=== PATIENT | female | born 1980 | race Caucasian/White ===

== ENCOUNTER → 2016-09-23 | Outpatient (CLI) | payer BC ==
[2016-09-25 15:08] LABS: CHLAMYDIA TRACH RNA*** NOT DETECTED (NOT DETECTED); GC (NEIS GONORRHOEAE)RNA** NOT DETECTED (NOT DETECTED)
== END | disposition home or self-care (01) ==
LOC: C.LABSPEC 13:15
PROVIDERS: ATTEND Physician Assistant
DX: Z30.430 Encounter for insertion of intrauterine contraceptive device (principal)

== ENCOUNTER 2020-09-28 07:38 | Inpatient (IN) ==
[2020-09-28] MEDS ORDERED: OXYTOCIN 30 UNITS/500 ML BAG IV PRN ×2 (08:33→08:36)
[2020-09-28 09:15] LABS: Hematocrit (blood only) 37.4 % (37-47); Hemoglobin 12.4 g/dL (12.0-16.0); Mean Corpuscular Hemoglobin 29.9 pg (25-34); Mean Corpuscular Hgb Conc 33.2 g/dL (32-36); Mean Corpuscular Volume 90.1 fL (80-100); Mean Platelet Volume 11.3 fL (7.4-10.4); Platelet Count 255 K/uL (130-400); RDW Coefficient of Variation 15.1 % (11.5-14.5); RDW Standard Deviation 49.2 fL (36.4-46.3); Red Blood Count 4.15 M/uL (4.2-5.4); White Blood Count 13.09 K/uL (4.8-10.8)
--- NOTE | 2020-09-28 09:35 | History & Physical Report ---
Date of Service September 28, 2020 Assessment & Plan (1) Insulin controlled gestational diabetes mellitus (GDM) during : Xiao is a 40-year-old at 39 weeks 5 days gestational age. Induction of labor for insulin-dependent gestational diabetes. 1. fetus: Cat 1 2. Labor: s/p chamorro, Pitocin per protocol. Will AROM when able 3. GBS negative. 4. Vitals: stable 5. A2gDM: BG q1hr (2) Supervision of elderly primigravida: Admission and Anticipated Discharge Date Admission Date: September 28, 2020 History of Present Illness Primary Care Provider: NO PCP Xiao is a 40-year-old at 39 weeks 5 days gestational age presents for induction of labor secondary to insulin-dependent gestational diabetes. Patient doing well today. Denying any significant contractions. Denies leakage of fluid or vaginal bleeding. Good movement. complicated by insulin-dependent gestational diabetes and advanced maternal age. OB Labs: Blood Type A Positive 02/27/20 Antibody Screen NEGATIVE 02/27/20 Hemoglobin 12.7 g/dL (12.0-16.0) 07/10/20 Hematocrit 38.0 % (37-47) 07/10/20 Mean Corpuscular Volume 88.2 fL (80-100) 02/27/20 Platelet Count 270 K/uL (130-400) 02/27/20 Rubella IgG Antibody Immune (Immune) 02/27/20 Rapid Plasma Reagin Nonreactive (Nonreactive) 02/27/20 Hepatitis B Surface Antigen Neg (Neg) 02/27/20 HIV (1&2) Ab and P24 Ag, 4th Gener Neg (Neg) 02/27/20 Glucose 1 Hour 50 gm Load 131 mg/dl (70-130) H 04/17/20 Maternal Serum Alpha Fetoprotein 37.8 ng/mL 04/17/20 OB Optional Labs: Chlamydia trachomatis RNA NOT DETECTED (NOT DETECTED) 02/27/20 Neisseria gonorrhoeae RNA NOT DETECTED (NOT DETECTED) 02/27/20 Alpha Fetoprotein Triple Screen SEE NOTE 04/17/20 Labs Reviewed: cfDNA HR AFP neg normal female karyotype, fish from [facility] amnio Allergies Allergy/AdvReac Type Severity Reaction Status Date / Time amoxicillin Allergy Mild Rash Verified 09/27/20 19:15 Home Medications Medication Instructions Recorded Confirmed Type prenat.vits,mariel,[id number] 1 tab PO DAILY 02/22/20 09/28/20 History acetone (urine) test #50 ea 05/31/20 09/27/20 Rx OneTouch Delica Plus Lancet 33 #200 ea NS 06/25/20 09/27/20 Rx gauge OneTouch Verio Flex Start #1 ea NS 06/25/20 09/27/20 Rx OneTouch Verio test strips #150 ea NS 06/25/20 09/27/20 Rx insulin aspart U-100 100 unit/mL See Rx Instructions SUBCUT 08/10/20 09/28/20 Rx (3 mL) subcutaneous pen .COMPLEX #15 ml pen needle, diabetic 32 gauge x #150 ea 08/10/20 09/27/20 Rx " Patient History Surgical History S/P wisdom tooth extraction Family History Father Hypertension Other Dyslipidemia Social History Smoking Status: Never smoker Hx Alcohol Use: No Hx Substance Use: No Preferred Language: Palestinian Communication Ability: Effective Vest Baster Required: No Beliefs That Will Affect Care: None marital status: marital status details: Peterson (40) [phone] Current Living Situation: Spouse Current Living Situation Comment: lives wtih spouse, 1 dog current occupational status: employed current occupation: [employer]. Other Information That Helps Us Care for You: No Feels Safe at Home: Yes Safety Concerns: Feels Safe At This Time Assistive Devices: Contacts and Glasses Physical Exam Constitutional: WD/WN, vitals as above Gastrointestinal (Abdomen): Inspection/Auscultation: abdomen not distended Percussion/Palpation: abdomen soft; abdomen nontender, no guarding and abdomen not rigid Psychiatric: A+Ox3, euthymic affect Genitourinary: normal external appearance OB Exam Abdomen: + vertex Manual OB Exam: + cervical dilation 4 cm, + cervical effacement 50% and + station -2 OB Exam Monitor Tracing: + external FHT monitor used, + external uterine monitor used, + category I and + normal FHT variability; no early decelerations present, no late decelerations present and no variable decelerations Results & Data ([facility]) Vital Signs (Past 12 Hours) Vital Signs Temp Pulse Resp BP 09/28/20 07:54 36.6 C 104 H 18 117/78 09/28/20 07:43 104 H 117/78 09/28/20 07:41 36.6 C 18 Coding Level of Care Code None Diagnoses Insulin controlled gestational diabetes mellitus (GDM) during O24.414 Supervision of elderly primigravida O09.519
[2020-09-28] MEDS: LACTATED RINGER'S 1,000 ML IV PRN ×3 (10:23→21:30)
--- NOTE | 2020-09-28 14:24 | Labor Progress Brief Note ---
Date of Service September 28, 2020 Subjective Reason For Note: Routine Evaluation Assessment & Plan (1) Insulin controlled gestational diabetes mellitus (GDM) during : Xioa is a 40-year-old at 39 weeks 5 days gestational age. Magaly ction of labor for insulin-dependent gestational diabetes. 1. fetus: Cat 1 2. Labor: s/p chamorro, Pitocin per protocol. AROM mec 3. GBS negative. 4. Vitals: stable 5. A2gDM: Stable, BG q2hr (2) Supervision of elderly primigravida: Admission and Anticipated Discharge Date Admission Date: September 28, 2020 Physical Exam Constitutional: WD/WN, vitals as above Psychiatric: A+Ox3, euthymic affect Genitourinary: OB Exam Abdomen: + vertex Manual OB Exam: + cervical dilation 5 cm, + cervical effacement 60%, + station -2 and + amniotic fluid meconium OB Exam Monitor Tracing: + external FHT monitor used, + external uterine monitor used, + category I and + normal FHT variability; no early decelerations present, no late decelerations present and no variable decelerations Results & Data ([facility]) Vital Signs (Past 12 Hours) Vital Signs Temp Pulse Resp BP 09/28/20 13:29 36.8 C 93 H 18 122/69 09/28/20 12:41 93 H 18 131/62 09/28/20 11:29 86 18 129/71 09/28/20 10:20 88 18 128/72 09/28/20 07:54 36.6 C 104 H 18 117/78 09/28/20 07:43 104 H 117/78 09/28/20 07:41 36.6 C 18 Coding Level of Care Code None Diagnoses Insulin controlled gestational diabetes mellitus (GDM) during O24.414 Supervision of elderly primigravida O09.519
[2020-09-28] MEDS ORDERED: BUPIVACAINE 0.25% 30 ML VIAL ONE (14:52)
[2020-09-28] MEDS ORDERED: ePHEDrine sulfate 50 MG/ML AMP ONE (14:52)
[2020-09-28] MEDS ORDERED: SODIUM CHLORIDE 0.9% INJ 10 ML VIAL ONE (14:52)
[2020-09-28] MEDS ORDERED: fentaNYL citrate 100 MCG/2 ML VIAL ONE ×2 (14:52→23:47)
[2020-09-28] MEDS ORDERED: fentaNYL 2MCG/ML ROPIVACAINE 1.25MG/ML 100 ML BAG EPI ONE (14:53)
--- NOTE | 2020-09-28 15:57 | Anesthesiology Consultation ---
Date of Service September 28, 2020 Assessment & Plan Chart Review Chart Review: Acceptable Risk for Labor Epidural Consults Requested none History Height/Weight Height: 5 ft 4 in Weight: 99.79 kg Allergies Allergy/AdvReac Type Severity Reaction Status Date / Time amoxicillin Allergy Mild Rash Verified 09/27/20 19:15 Medications Home Medications Medication Instructions Recorded Confirmed Last Taken prenat.vits,mariel,[id number] 1 tab PO DAILY 02/22/20 09/28/20 09/27/20 08:00 acetone (urine) test #50 ea 05/31/20 09/27/20 Unknown OneTouch Delica Plus Lancet 33 #200 ea NS 06/25/20 09/27/20 Unknown gauge OneTouch Verio Flex Start #1 ea NS 06/25/20 09/27/20 Unknown OneTouch Verio test strips #150 ea NS 06/25/20 09/27/20 Unknown insulin aspart U-100 100 unit/mL See Rx Instructions SUBCUT 08/10/20 09/28/20 09/26/20 22:00 (3 mL) subcutaneous pen .COMPLEX #15 ml 35 U pen needle, diabetic 32 gauge x #150 ea 08/10/20 09/27/20 Unknown " Active Medications Generic Name Dose Route Start Last Admin Trade Name Freq PRN Reason Stop Dose Admin Lactated Ringer's 1,000 mls @ 125 mls/hr 09/28/20 08:33 09/28/20 15:35 Lr IV 09/30/20 08:32 125 mls/hr .Q8H PRN Infusion L&D Protocol Protocol Oxytocin 30 units in 500 mls @ 12 mls/hr 09/28/20 08:36 09/28/20 15:19 Pitocin IV 09/30/20 08:35 0.72 units/hr .Q24H PRN 12 mls/hr Labor Induction/Augmentation Titration Protocol 0.72 UNITS/HR Past Family History Family History Father Hypertension Other Dyslipidemia Past Surgical History Surgical History S/P wisdom tooth extraction Social History Smoking Status: Never smoker Hx Alcohol Use: No Hx Substance Use: No substance use type: does not use Physical Exam Vital Signs Last Vital Signs Temp 36.8 C 09/28/20 13:29 Pulse 95 H 09/28/20 15:54 Resp 18 09/28/20 13:29 BP 125/66 09/28/20 15:54 Pulse Ox 98 09/28/20 15:54 Testing Laboratory Results 09/28/20 08:55
[2020-09-28] MEDS ORDERED: diphenhydrAMINE 50 MG/ML VIAL IV PRN (15:58)
[2020-09-28] MEDS ORDERED: ePHEDrine sulfate 50 MG/ML AMP IV PRN (15:58)
[2020-09-28] MEDS ORDERED: NALOXONE HCL 0.4 MG/1 ML VIAL/CARP IV PRN (15:58)
[2020-09-28] MEDS ORDERED: NALOXONE HCL 1 MG in SODIUM CHLORIDE 0.9% 1000ML 1,000 ML IV PRN (15:58)
--- NOTE | 2020-09-28 19:17 | Labor Progress Brief Note ---
Date of Service September 28, 2020 Subjective Reason For Note: Routine Evaluation Assessment & Plan (1) Insulin controlled gestational diabetes mellitus (GDM) during : Xiao is a 40-year-old at 39 weeks 5 days gestational age. Magaly ction of labor for insulin-dependent gestational diabetes. 1. fetus: Cat 1 2. Labor: progressing, s/p chamorro, Pitocin per protocol. AROM mec 3. GBS negative. 4. Vitals: stable 5. A2gDM: Stable, BG q2hr (2) Supervision of elderly primigravida: Admission and Anticipated Discharge Date Admission Date: September 28, 2020 Physical Exam Constitutional: WD/WN, vitals as above Psychiatric: A+Ox3, euthymic affect Genitourinary: OB Exam Abdomen: + vertex Manual OB Exam: + cervical dilation (5.5), + cervical effacement 90%, + station -1 and + amniotic fluid meconium OB Exam Monitor Tracing: + external FHT monitor used, + external uterine monitor used, + category I and + normal FHT variability; no early decelerations present, no late decelerations present and no variable decelerations Results & Data ([facility]) Vital Signs (Past 12 Hours) Vital Signs Temp Pulse Resp BP Pulse Ox 09/28/20 19:09 91 H 98 09/28/20 19:04 92 H 99 09/28/20 19:01 84 110/63 94 09/28/20 18:59 86 98 09/28/20 18:54 85 99 09/28/20 18:49 93 H 99 09/28/20 18:46 90 125/68 09/28/20 18:44 87 99 09/28/20 18:39 88 99 09/28/20 18:37 99 H 94 09/28/20 18:34 92 H 100 09/28/20 18:31 93 H 129/74 09/28/20 18:29 102 H 100 09/28/20 18:24 91 H 99 09/28/20 18:19 93 H 100 09/28/20 18:15 90 118/67 09/28/20 18:14 90 100 09/28/20 18:09 94 H 82 L 09/28/20 18:04 93 H 100 09/28/20 18:00 99 H 115/69 09/28/20 17:59 94 H 100 09/28/20 17:54 92 H 100 09/28/20 17:49 91 H 99 09/28/20 17:46 86 115/64 09/28/20 17:44 96 H 99 09/28/20 17:39 97 H 99 09/28/20 17:34 95 H 98 09/28/20 17:31 90 121/58 L 09/28/20 17:29 96 H 98 09/28/20 17:24 99 H 98 09/28/20 17:19 105 H 97 09/28/20 17:15 96 H 127/62 09/28/20 17:14 103 H 98 09/28/20 17:09 97 H 97 09/28/20 17:04 89 97 09/28/20 17:00 36.7 C 90 20 121/67 09/28/20 16:59 90 97 09/28/20 16:58 89 93 09/28/20 16:54 96 H 97 09/28/20 16:49 96 H 96 09/28/20 16:46 88 118/66 09/28/20 16:44 99 H 96 09/28/20 16:39 92 H 96 09/28/20 16:34 92 H 95 09/28/20 16:31 102 H 120/74 09/28/20 16:29 99 H 95 09/28/20 16:28 103 H 94 09/28/20 16:24 110 H 95 09/28/20 16:21 97 H 94 09/28/20 16:19 102 H 95 09/28/20 16:14 101 H 95 09/28/20 16:10 113 H 122/65 09/28/20 16:09 108 H 96 09/28/20 16:06 102 H 94 09/28/20 16:05 125 H 123/67 09/28/20 16:04 125 H 96 09/28/20 16:00 108 H 134/67 09/28/20 15:59 100 H 96 09/28/20 15:54 95 H 125/66 98 09/28/20 15:52 90 115/60 09/28/20 15:50 86 123/63 09/28/20 15:49 88 100 09/28/20 15:48 85 126/64 09/28/20 15:46 88 123/67 09/28/20 15:44 80 121/63 100 09/28/20 15:42 88 134/75 89 L 09/28/20 15:40 89 136/64 09/28/20 15:39 93 H 151/70 H 100 09/28/20 15:34 97 H 100 09/28/20 15:31 109 H 93 09/28/20 15:29 93 H 100 09/28/20 15:24 91 H 100 09/28/20 15:19 87 100 09/28/20 15:14 95 H 100 09/28/20 15:09 92 H 125/62 100 09/28/20 15:04 89 99 09/28/20 15:00 36.6 C 20 09/28/20 14:27 88 129/70 09/28/20 13:29 36.8 C 93 H 18 122/69 09/28/20 12:41 93 H 18 131/62 09/28/20 11:29 86 18 129/71 09/28/20 10:20 88 18 128/72 09/28/20 07:54 36.6 C 104 H 18 117/78 09/28/20 07:43 104 H 117/78 09/28/20 07:41 36.6 C 18 Coding Level of Care Code None Diagnoses Insulin controlled gestational diabetes mellitus (GDM) during O24.414 Supervision of elderly primigravida O09.519
--- NOTE | 2020-09-28 20:41 | Labor Progress Brief Note ---
Date of Service September 28, 2020 Subjective Reason For Note: Routine Evaluation Assessment & Plan (1) Insulin controlled gestational diabetes mellitus (GDM) during : Xiao is a 40-year-old at 39 weeks 5 days gestational age. Magaly ction of labor for insulin-dependent gestational diabetes. 1. fetus: Cat 1 2. Labor: progressing, s/p chamorro, Pitocin per protocol. AROM mec 3. GBS negative. 4. Vitals: stable 5. A2gDM: Stable, BG q2hr (2) Supervision of elderly primigravida: Admission and Anticipated Discharge Date Admission Date: September 28, 2020 Physical Exam Genitourinary: OB Exam Abdomen: + vertex Manual OB Exam: + cervical dilation (6), + cervical effacement 90% and + station 0 OB Exam Monitor Tracing: + external FHT monitor used, + external uterine monitor used, + category I and + normal FHT variability Results & Data ([facility]) Vital Signs (Past 12 Hours) Vital Signs Temp Pulse Resp BP Pulse Ox 09/28/20 20:34 98 H 100 09/28/20 20:30 93 H 132/62 09/28/20 20:29 95 H 100 09/28/20 20:24 89 97 09/28/20 20:19 91 H 99 09/28/20 20:16 88 117/59 L 09/28/20 20:14 87 99 09/28/20 20:09 92 H 97 09/28/20 20:04 91 H 99 09/28/20 20:01 88 18 116/57 L 09/28/20 19:59 95 H 98 09/28/20 19:58 100 H 94 09/28/20 19:54 95 H 98 09/28/20 19:49 95 H 95 09/28/20 19:46 96 H 116/68 91 09/28/20 19:44 93 H 96 09/28/20 19:39 95 H 98 09/28/20 19:34 91 H 100 09/28/20 19:30 93 H 115/69 09/28/20 19:29 93 H 100 09/28/20 19:24 91 H 100 09/28/20 19:19 98 H 100 09/28/20 19:16 100 H 156/77 H 09/28/20 19:14 104 H 100 09/28/20 19:10 36.8 C 18 09/28/20 19:09 91 H 98 09/28/20 19:04 92 H 99 09/28/20 19:01 84 110/63 94 09/28/20 18:59 86 98 09/28/20 18:54 85 99 09/28/20 18:49 93 H 99 09/28/20 18:46 90 125/68 09/28/20 18:44 87 99 09/28/20 18:39 88 99 09/28/20 18:37 99 H 94 09/28/20 18:34 92 H 100 09/28/20 18:31 93 H 129/74 09/28/20 18:29 102 H 100 09/28/20 18:24 91 H 99 09/28/20 18:19 93 H 100 09/28/20 18:15 90 118/67 09/28/20 18:14 90 100 09/28/20 18:09 94 H 82 L 09/28/20 18:04 93 H 100 09/28/20 18:00 99 H 115/69 09/28/20 17:59 94 H 100 09/28/20 17:54 92 H 100 09/28/20 17:49 91 H 99 09/28/20 17:46 86 115/64 09/28/20 17:44 96 H 99 09/28/20 17:39 97 H 99 09/28/20 17:34 95 H 98 09/28/20 17:31 90 121/58 L 09/28/20 17:29 96 H 98 09/28/20 17:24 99 H 98 09/28/20 17:19 105 H 97 09/28/20 17:15 96 H 127/62 09/28/20 17:14 103 H 98 09/28/20 17:09 97 H 97 09/28/20 17:04 89 97 09/28/20 17:00 36.7 C 90 20 121/67 09/28/20 16:59 90 97 09/28/20 16:58 89 93 09/28/20 16:54 96 H 97 09/28/20 16:49 96 H 96 09/28/20 16:46 88 118/66 09/28/20 16:44 99 H 96 09/28/20 16:39 92 H 96 09/28/20 16:34 92 H 95 05/14/21 16:31 102 H 120/74 09/28/20 16:29 99 H 95 09/28/20 16:28 103 H 94 09/28/20 16:24 110 H 95 09/28/20 16:21 97 H 94 09/28/20 16:19 102 H 95 09/28/20 16:14 101 H 95 09/28/20 16:10 113 H 122/65 09/28/20 16:09 108 H 96 09/28/20 16:06 102 H 94 09/28/20 16:05 125 H 123/67 09/28/20 16:04 125 H 96 09/28/20 16:00 108 H 134/67 09/28/20 15:59 100 H 96 09/28/20 15:54 95 H 125/66 98 09/28/20 15:52 90 115/60 09/28/20 15:50 86 123/63 09/28/20 15:49 88 100 09/28/20 15:48 85 126/64 09/28/20 15:46 88 123/67 09/28/20 15:44 80 121/63 100 09/28/20 15:42 88 134/75 89 L 09/28/20 15:40 89 136/64 09/28/20 15:39 93 H 151/70 H 100 09/28/20 15:34 97 H 100 09/28/20 15:31 109 H 93 09/28/20 15:29 93 H 100 09/28/20 15:24 91 H 100 09/28/20 15:19 87 100 09/28/20 15:14 95 H 100 09/28/20 15:09 92 H 125/62 100 09/28/20 15:04 89 99 09/28/20 15:00 36.6 C 20 09/28/20 14:27 88 129/70 09/28/20 13:29 36.8 C 93 H 18 122/69 09/28/20 12:41 93 H 18 131/62 09/28/20 11:29 86 18 129/71 09/28/20 10:20 88 18 128/72 Coding Level of Care Code None Diagnoses Insulin controlled gestational diabetes mellitus (GDM) during O24.414 Supervision of elderly primigravida O09.519
[2020-09-28] MEDS ORDERED: Nursing to Pharmacy Communication SCH (21:00)
[2020-09-28] MEDS ORDERED: LIDOCAINE HCL 2% MPF (LOCAL) 5 ML VIAL INFIL ONE (23:47)
[2020-09-28] MEDS: fentaNYL 2MCG/ML ROPIVACAINE 1.25MG/ML 100 ML BAG EPI PRN (23:48)
--- NOTE | 2020-09-28 23:53 | Communication Note ---
Date of Service: September 28, 2020 Pt c/o pain. VSS. Injected epidural with 2% lidocaine 5 cc pus fentanyl 100mcg.
[2020-09-29] MEDS ORDERED: fentaNYL citrate 100 MCG/2 ML VIAL ONE (02:22)
[2020-09-29] MEDS ORDERED: LIDOCAINE HCL 2% MPF (LOCAL) 5 ML VIAL INFIL ONE (02:22)
[2020-09-29] MEDS: LACTATED RINGER'S 1,000 ML IV PRN (04:12)
[2020-09-29] MEDS: fentaNYL 2MCG/ML ROPIVACAINE 1.25MG/ML 100 ML BAG EPI PRN (04:12)
[2020-09-29] MEDS ORDERED: METHYLERGONOVINE MALEATE 0.2 MG/ML AMP ONE (06:16)
[2020-09-29] MEDS ORDERED: miSOPROStoL 100 MCG TAB ONE ×2 (06:17→06:22)
[2020-09-29] MEDS ORDERED: DIPHTHERIA/TETANUS/PERTUSSIS 0.5 ML SYR/VIAL IM ONE (06:27)
[2020-09-29] MEDS ORDERED: HYDROCORTISONE ACETATE 25 MG SUPP PR PRN (06:27)
[2020-09-29] MEDS ORDERED: miSOPROStoL 100 MCG TAB PR ONE (06:27)
[2020-09-29] MEDS ORDERED: METHYLERGONOVINE MALEATE 0.2 MG/ML AMP IM ONE (06:27)
[2020-09-29] MEDS ORDERED: BENZOCAINE 20% AER SPR 82.5 GM CAN EXT PRN (06:27)
[2020-09-29] MEDS ORDERED: SUPERCREAM 0.870% 15 GM JAR EXT PRN (06:27)
[2020-09-29] MEDS ORDERED: OXYTOCIN 30 UNITS/500 ML BAG IV PRN (06:27)
[2020-09-29] MEDS ORDERED: ACETAMINOPHEN 325 MG TAB PO PRN (06:27)
[2020-09-29] MEDS ORDERED: bisacodyL 10 MG SUPP PR PRN (06:27)
[2020-09-29] MEDS ORDERED: NURSING L&D Epidural Breakthrough Pain Update ONE (06:29)
--- NOTE | 2020-09-29 06:34 | Anesthesia Procedure Note ---
Date of Service September 29, 2020 Anesthesia Post Epidural Note Vital Signs Vital Signs: Temp Pulse Resp BP Pulse Ox 36.8 C 126 H 20 117/61 98 09/29/20 04:51 09/29/20 06:21 09/29/20 04:51 09/29/20 06:21 09/29/20 06:04 Pain Intensity Bilateral Abdomen: Pain Intensity: 7 Notes Mental Status: alert / awake / arousable Nausea / Vomiting: adequately controlled Pain: adequately controlled Airway Patency, RR, SpO2: stable & adequate BP & HR: stable & adequate Hydration State: stable & adequate Neuraxial Anesthesia: was administered and sensory block is resolving Anesthetic Complications: no major complications apparent and Pt Satisfied with anesthetic care Epidural: Removed without complications and With tip intact
[2020-09-29] MEDS: IBUPROFEN 600 MG TAB PO PRN ×3 (07:43→21:29)
[2020-09-29] MEDS: DOCUSATE SODIUM 100 MG CAP PO SCH ×2 (07:44→20:17)
[2020-09-29] MEDS: FERROUS SULFATE 325 MG TAB PO SCH (07:44)
[2020-09-29] MEDS: PRENATAL VITAMIN 1 TAB PO SCH (07:44)
--- NOTE | 2020-09-29 11:36 | Delivery Summary ---
DATE OF OPERATION: 09/29/2020 PROCEDURE: Normal spontaneous vaginal delivery, first-degree perineal laceration repair. SURGEON: Chago Isaacs MD. PREOPERATIVE DIAGNOSES: 1. Single intrauterine at 39 weeks 6 days gestational age. 2. Insulin-dependent gestational diabetes. 3. Advanced maternal age. POSTOPERATIVE DIAGNOSES: 1. Single intrauterine at 39 weeks 6 days gestational age. 2. Insulin-dependent gestational diabetes. 3. Advanced maternal age. 4. Status post delivery. ESTIMATED BLOOD LOSS: 400 mL. DRAINS: None. FLUIDS: Continuous lactated Ringer. URINE OUTPUT: Not measured. COMPLICATIONS: None. FINDINGS: Viable female infant with weight pending and Apgars of 8 and 9 at one and five minutes respectively. DESCRIPTION OF PROCEDURE: The patient progressed to 10 cm dilated, 100% effaced, +2 station, pushed over intact perineum with an epidural anesthesia and delivered a viable female infant, weight and Apgars as noted above. Head of the delivered in LALITO position, restituted to right transverse. No nuchal cord was noted. Body and shoulders quickly followed. was delivered to the maternal abdomen and was noted to be vigorous soon after delivery. One minute delayed cord clamping was initiated. The cord was then double clamped and cut. Cord blood was obtained. Attention was then turned to delivery of the placenta, which was delivered intact, 3-vessel cord, gentle cord traction. Inspection of the perineum and vagina after the delivery of the placenta. Uterine massage was initiated and the patient was noted to have brisker than desired bleeding and she was given a dose of Methergine and continued uterine massage, which did improve bleeding. This was in combination with oxytocin per regular standard protocol. The inspection of the perineum, vagina, and cervix was then made. There was noted to be a first-degree perineal laceration, which was repaired with a continuous running stitch of 3-0 Vicryl. Needle, sponge, and instrument counts were correct at the completion of the case. Both mother and were stable in the immediate post-delivery period. Due to the brisk bleeding noted after delivery of the placenta, 800 mcg of Cytotec were placed per rectum as a prophylaxis for bleeding. I attest to the content of the Intraoperative Record and any orders documented therein. Any exception s are noted below.
[2020-09-30] MEDS: IBUPROFEN 600 MG TAB PO PRN ×4 (03:02→19:59)
[2020-09-30] MEDS: FERROUS SULFATE 325 MG TAB PO SCH (08:13)
[2020-09-30] MEDS: PRENATAL VITAMIN 1 TAB PO SCH (08:13)
[2020-09-30] MEDS: DOCUSATE SODIUM 100 MG CAP PO SCH ×2 (08:13→19:59)
--- NOTE | 2020-09-30 08:46 | Obstetrical Progress Note ---
Date of Service September 30, 2020 Assessment & Plan (1) care following vaginal delivery: routine care. rh pos, ri, breast feeding. stable. Day #:: 1 Subjective Ambulation: ambulating normally Voiding: no voiding problems Diet Tolerance:: regular diet Lochia:: Small Feeding Type:: breast feeding doing well, denies pain. Physical Exam Constitutional WD/WN, vitals as above Respiratory normal respiratory effort, lungs clear to auscultation Cardiovascular Rate/Rhythm: regular rate and regular rhythm Gastrointestinal (Abdomen) Inspection/Auscultation: abdomen normal to inspection Percussion/Palpation: abdomen soft; abdomen nontender Fundus firm 1cm down Musculoskeletal nt calves trace edema Neurologic grossly normal Psychiatric A+Ox3, euthymic affect Results & Data ([facility]) Vital Signs (Past 12 Hours) Vital Signs Temp Pulse Pulse Resp BP Pulse Ox 09/30/20 03:00 97.7 F 85 16 111/69 97 09/29/20 23:40 97.5 F L 84 84 18 110/70 97
[2020-09-30] MEDS ORDERED: bisacodyL 5 MG TABEC PO SCH (20:00)
[2020-10-01] MEDS: IBUPROFEN 600 MG TAB PO PRN ×2 (00:46→07:21)
--- NOTE | 2020-10-01 06:28 | Obstetrical Progress Note ---
Date of Service October 01, 2020 Assessment & Plan (1) care following vaginal delivery: stable, doing well. routine pp care. ready for d/c today. instructions reveiwed. f/u 6 wk pp check. Day #:: 2 Subjective Ambulation: ambulating normally Voiding: no voiding problems Diet Tolerance:: regular diet Lochia:: Small Feeding Type:: breast feeding no pain issues. some cramps. Physical Exam Constitutional WD/WN, vitals as above Respiratory normal respiratory effort, lungs clear to auscultation Cardiovascular Rate/Rhythm: regular rate and regular rhythm Gastrointestinal (Abdomen) Inspection/Auscultation: abdomen normal to inspection Percussion/Palpation: abdomen soft; abdomen nontender Fundus firm 2cm down Musculoskeletal nt calves tr edema Neurologic grossly normal Psychiatric A+Ox3, euthymic affect Results & Data ([facility]) Vital Signs (Past 12 Hours) Vital Signs Temp Pulse Resp BP Pulse Ox 09/30/20 23:35 97.7 F 87 18 114/69 97
[2020-10-01] MEDS: DOCUSATE SODIUM 100 MG CAP PO SCH (07:21)
[2020-10-01] MEDS: FERROUS SULFATE 325 MG TAB PO SCH (07:21)
[2020-10-01] MEDS: PRENATAL VITAMIN 1 TAB PO SCH (07:21)
== END 2020-10-01 10:15 | disposition home or self-care (01) | DRG 807 ==
LOC: 4S1 07:38 → 4S2 09-29 14:30